=== PATIENT | male | born 1960 | race Caucasian/White ===

== ENCOUNTER → 2017-07-24 | Day surgery (SDC) | payer OTHER ==
[2017-07-14 14:31] LABS: HEMATOCRIT 45.4 % (38.2-49.6); HEMOGLOBIN 15.7 g/dL (14.0-18.0)
[2017-07-14 15:09] LABS: ANION GAP 13.3 mmol/L (8-16); BLOOD UREA NITROGEN 8 mg/dL (7-26); BUN/CREATININE RATIO 9 (6-25); CALCIUM 9.2 mg/dL (8.4-10.2); CARBON DIOXIDE 27 mmol/L (22-29); CHLORIDE 100 mmol/L (98-107); CREATININE, SERUM 0.88 mg/dL (0.72-1.25); EST GLOMERULAR FILTRATION RATE > 60 ML/MIN (60-); GLUCOSE 94 mg/dL (74-118); POTASSIUM 4.3 mmol/L (3.5-5.1); SODIUM 136 mmol/L (136-145)
[~2017-07-24] MED LIST: BALANCED SALT SOLN (OPTH) 15 ML BTL IO ONE; BUPIVACAINE HC 0.75% PF 10ML VIAL INJ ONE; CHONDR SU A NA/HYALUR SOD 1 EACH KIT IO ONE; CYCLOPENTOLATE HCL 2% OPTH SOLN 2 ML BTL OP ONE; EPINEPHRINE HCL INJ 1 MG/ML AMP ONE; GATIFLOXACIN(OPTH) 5 ML LIQD ONE; LIDOCAINE 2% /EPINEPHRINE 20 ML SDV INJ ONE; LIDOCAINE HCL 2% LOCAL INJ 5 ML SDV VIAL INJ ONE; LIDOCAINE HCL-PF 4% 40 MG/1 ML 5ML AMP ONE; MIDAZOLAM HCL 2 MG/2 ML VIAL ONE; PHENYLEPHRINE HCL 2 ML DROPS ONE; PILOCARPINE HCL(OPTH) 15 ML LIQD ONE; POVIDONE IODINE 5% (OPTH) 30 ML BTL ONE; PROPOFOL IV EMULSION 10 MG/ML 20 ML VIAL ONE; TOBRAMYCIN/DEXAMETHASONE(OPTH) 3.5 GM TUBE ONE
== END | disposition home or self-care (01) ==
LOC: OR 07:29
PROVIDERS: ATTEND Ophthalmology
DX: H25.12 Age-related nuclear cataract, left eye (principal); F17.200 Nicotine dependence, unspecified, uncomplicated; Z01.810 Encounter for preprocedural cardiovascular examination; Z01.812 Encounter for preprocedural laboratory examination
CPT/HCPCS: 36415; 66982; 80048; 85014; 85018; 93005; J0171; J2001 ×2; J2250

== ENCOUNTER → 2017-09-18 | Day surgery (SDC) | payer OTHER ==
[~2017-09-18] MED LIST changes: +FENTANYL CITRATE/PF 100MCG/2 ML INJ ONE; -LIDOCAINE HCL 2% LOCAL INJ 5 ML SDV VIAL INJ ONE; +PROPOFOL IV EMULSION 10 MG/ML 20 ML VIAL IV ONE; -PROPOFOL IV EMULSION 10 MG/ML 20 ML VIAL ONE
== END | disposition home or self-care (01) ==
LOC: OR 07:51
PROVIDERS: ATTEND Ophthalmology
CPT/HCPCS: J0171; J2001; J2250

== ENCOUNTER 2018-01-25 12:52 | Inpatient (IN) | payer OTHER ==
[~2018-01-25] VITALS: Ht 185.4 cm; Wt 83.5 kg
[2018-01-25] MEDS ORDERED: SODIUM CHLORIDE 0.9% 1000ML 1,000 ML IV ONE (13:45)
[2018-01-25 14:06] LABS: BASOPHILS % 0.4 % (0.0-1.0); EOSINOPHILS # (AUTO) 0.1 (0.0-0.4); EOSINOPHILS % 1.5 % (0.0-6.0); HEMATOCRIT 41.5 % (38.2-49.6); HEMOGLOBIN 14.7 g/dL (14.0-18.0); LYMPHOCYTES # (AUTO) 2.5 (1.0-3.2); LYMPHOCYTES % 34.6 % (18.0-39.1); MEAN CORPUSCULAR HEMOGLOBIN 35.5 pg (28-32); MEAN CORPUSCULAR HGB CONC 35.4 g/dL (31-35); MEAN CORPUSCULAR VOLUME 100.2 fL (81-99); MONOCYTES # (AUTO) 0.6 (0.2-0.8); MONOCYTES % 8.7 % (4.4-11.3); NEUTROPHILS # (AUTO) 3.9 (2.1-6.9); NEUTROPHILS % 54.4 % (38.7-80.0); PLATELET COUNT 241 x10e3/uL (140-360); RED BLOOD COUNT 4.14 x10e6/uL (4.3-5.7); RED CELL DISTRIBUTION WIDTH 12.4 % (11.7-14.4)
[2018-01-25 14:24] LABS: ANION GAP 14.6 mmol/L (8-16); BLOOD UREA NITROGEN < 5 mg/dL (7-26); CALCIUM 8.9 mg/dL (8.4-10.2); CARBON DIOXIDE 24 mmol/L (22-29); CHLORIDE 98 mmol/L (98-107); CREATININE, SERUM 1.28 mg/dL (0.72-1.25); EST GLOMERULAR FILTRATION RATE 58 ML/MIN (60-); GLUCOSE 97 mg/dL (74-118); MAGNESIUM 1.8 MG/DL (1.3-2.1); POTASSIUM 3.6 mmol/L (3.5-5.1); SODIUM 133 mmol/L (136-145)
[2018-01-25 14:34] LABS: BUN/CREATININE RATIO 4 (6-25)
--- NOTE | 2018-01-25 14:38 | Diagnostic Imaging Report ---
History: Low back pain Comparison studies: None Technique: Axial images were obtained from T12 through the sacrum. Coronal and sagittal images reconstructed from the axial data. Dose modulation, iterative reconstruction, and/or weight based adjustment of the mA/kV was utilized to reduce the radiation dose to as low as reasonably achievable. Intravenous contrast: None Findings: Number of non-rib bearing vertebral bodies: 5 Alignment: Right curvature centered at L1-L2 is associated with 3 mm right lateral displacement of L2 over L3 and 3 mm left lateral displacement of L4 on L5. Normal lordosis. Soft tissues: Punctate atherosclerotic calcifications in the aorta. Paraspinal muscles: Unremarkable. Vertebrae: Bones are mildly demineralized. No compression fractures, infection or neoplasm. Degenerative changes: T12-L1: Mildly degenerated disc. No significant spinal canal or foraminal stenosis in spite of a disc bulge. No disc herniation. L1-L2: Mildly degenerated disc, worse on the left due to the curvature. Mild spinal canal stenosis and mild right foraminal stenosis due to a left asymmetric disc bulge Patent left foramen. No disc herniation. L2-L3: Mildly degenerated disc, worse on the left due to the curvature. Moderate spinal canal stenosis and foraminal stenosis, mild right, moderate left due to a left asymmetric disc bulge, endplate osteophytes and mild facet arthrosis. L3-L4: Mildly degenerated disc. Severe spinal canal stenosis and moderate bilateral foraminal stenosis is due to a disc bulge, buckled ligamenta flava and facet arthrosis. No disc herniation. L4-L5: Moderately degenerated disc, worse on the right due to the curvature. Severe spinal canal stenosis and foraminal stenosis, severe right, moderate left, is due to a right asymmetric disc bulge, thickened ligamenta flava and facet arthrosis. No disc herniation. L5-S1: Mildly degenerated disc. Severe bilateral foraminal stenosis due to a disc bulge, endplate osteophytes and facet arthrosis. Patent spinal canal. No disc herniation. Sacroiliac joints: No degenerative changes. IMPRESSION: 1. Degenerated discs from T12 through S1, worse on the left from T12 to L3 and on the right at L4-5 due to a right curvature centered at L1-L2 and lateral displacement of L2 on L3 and L4 on L5. 2. Degenerative spinal canal stenosis is moderate at L2-3 but severe at L3-4 and L4-5. 3. Superimposed foraminal stenosis is worst, as expected due to the curvature, on the left at L2-3, bilaterally at L3-4, bilaterally at L4-5 but worse on the right, bilaterally at L5-S1. 4. No disc herniations Signed by: Dr. Ciro Barnett M.D. on 01/25/2018 2:34 PM
[2018-01-25 15:38] LABS: CLARITY,URINE CLEAR (CLEAR); COLOR,URINE YELLOW (YELLOW)
[2018-01-25 15:39] LABS: BACTERIA,URINE RARE /HPF; BILIRUBIN,URINE NEGATIVE (NEGATIVE); KETONES,URINE NEGATIVE (NEGATIVE); LEUKOCYTE ESTERASE ,URINE NEGATIVE (NEGATIVE); NITRITE,URINE NEGATIVE (NEGATIVE); PROTEIN,URINE DIPSTICK NEGATIVE (NEGATIVE); RBC,URINE 0-5 /HPF (0-5); URINE UROBILINOGEN 0.2 mg/dL (0.2 - 1); WBC,URINE (MAN) 0-5 /HPF (0-5)
[2018-01-25] MEDS: NICOTINE 21 MG/EA PATCH TOP SCH (16:40)
[2018-01-25 17:45] VITALS: BP 141/82
[2018-01-25 18:20] VITALS: BP 141/82
[2018-01-25 18:33] VITALS: BP 141/82
[2018-01-25 20:05] VITALS: BP 149/82
[2018-01-25 20:15] VITALS: BP 149/82
[2018-01-25] MEDS: HYDROCODONE/APAP 7.5MG-325MG 1 EA TAB PO PRN (23:40)
[2018-01-26] VITALS (7 sets, daily range): BP systolic 135–159; BP diastolic 82–97
[2018-01-26] MEDS: NICOTINE 21 MG/EA PATCH TOP SCH (11:17)
--- NOTE | 2018-01-26 17:14 | Consultation ---
DATE OF CONSULTATION: January 26, 2018 NEUROLOGY CONSULTATION HISTORY OF PRESENT ILLNESS: Mr. Harry is a 57-year-old, [id number] man without reported past medical history admitted to [facility] on January 25, 2018, with weakness and numbness affecting both legs. Approximately 5 weeks ago, the patient began to experience multiple symptoms in his legs which are described as follows: Mr. Harry reports numbness and decreased sensation in the feet, forelegs, and thighs. Patient does not endorse progression of numbness either distally or proximally. He reports noticing, "My legs were numb one day." The patient reports weakness affecting both legs. Specifically, Mr. Harry reports difficulty walking down stairs. Patient reports impairment of balance. He cannot stand for a long time without swaying or "weaving." The patient endorses fatigability of the muscles with prolonged standing and walking. This improves with sitting for a brief period of time. Initially, the patient experienced intermittent pain affecting both legs. This is further described as a brief shock traveling from the low back distally to the feet. The pain was exacerbated by increased intraabdominal pressure (i.e., cough or sneeze). However, after approximately 2 to 3 days, this pain spontaneously resolved. Mr. Harry does endorse mild low back pain which is chronic. He reports occasional urinary incontinence. He does not report bowel dysfunction or sexual dysfunction. As stated above, these symptoms began approximately 5 weeks ago and have gradually worsened during that time. Mr. Harry presented to the emergency center at [facility] on January 25, 2018, for further evaluation of the above symptoms. Upon arrival in the emergency center, the patient was afebrile with a blood pressure of 123/88 and a pulse of 102 beats per minute. His neurological examination was significant for an abnormal gait, which is described as follows: Ambulates with a wide gait with need to visualize the floor before placing the foot on the floor due to lack of sensation. Muscle tone remains strong. There are no abnormalities in strength, deep tendon reflexes, or sensation noted on the emergency center physician's exam. While in the emergency center, a CT of the lumbar spine was performed and revealed multilevel degenerative disk disease, most prominent at L2-L3, L3-L4, and L4-L5 with moderate to severe spinal canal stenosis at these levels. Mr. Harry was admitted to [facility] as an inpatient for further evaluation and treatment of his symptoms. REVIEW OF SYSTEMS: Weakness of both legs, numbness of both legs, impairment of balance and gait, chronic mild low back pain, urinary incontinence. Otherwise, the 12-point review of systems is negative. PAST MEDICAL HISTORY: The patient endorses a prior diagnosis of hypertension, which he treats with diet and exercise. He endorses prior low back injuries. PAST SURGICAL HISTORY: Bilateral cataract removal, right elbow surgery, right ankle surgery. PAST HOSPITALIZATIONS: Surgeries/procedures as listed, infection with Yersinia pestis resulting in a prolonged hospitalization (2 weeks). FAMILY MEDICAL HISTORY: The patient's paternal and maternal grandparents are . Their medical histories are unknown. The patient's father is from Alzheimer disease. The patient's mother is from breast cancer. She had a history of thyroid cancer as well. Mr. Harry has 1 brother who is alive. Other than being morbidly obese, he is otherwise healthy. The patient has no biological children. SOCIAL HISTORY: Patient is single. 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 The patient does report tobacco use. He has smoked 1 pack of cigarettes per day for the past 37 years. The patient reports daily alcohol use. He drinks 2 beers after work. The patient reports remote marijuana use. HOME MEDICATIONS: Advil as needed. ALLERGIES: PENICILLIN. NO KNOWN FOOD ALLERGIES. NO KNOWN ALLERGY TO LATEX. NO KNOWN ALLERGIES TO IODINE OR OTHER CONTRAST MATERIALS. PHYSICAL EXAMINATION VITAL SIGNS: Height 73 inches. Weight 184 pounds. BMI 24.3 kg per meter squared. Blood pressure 135/84 mmHg. Pulse 69 beats per minute. Respiratory rate 20 breaths per minute. Oxygen saturation 97% on room air. GENERAL: The patient is awake and alert. Does not appear distressed. HEENT: Normocephalic and atraumatic. Pupils are surgical. Moist mucous membranes. NECK: Supple. No appreciable thyromegaly. No appreciable carotid bruits. CARDIOVASCULAR: S1 and S2, regular rate and rhythm. No murmurs, rubs or gallops. RESPIRATORY: Clear to auscultation bilaterally. No wheezes, rhonchi or rales. EXTREMITIES: The skin is warm and dry. No clubbing, cyanosis or edema. The posterior tibial and dorsalis pedis pulses are 2+ and symmetric. SKIN: No rashes or lesions. NEUROLOGIC EXAMINATION MEMORY/ATTENTION: The patient is awake and alert. Oriented to person, place, time, and situation. CRANIAL NERVES: Cranial nerve I: Not tested. Cranial nerves II, III, IV, and : Pupils are surgical. Extraocular movements intact. No nystagmus. Cranial nerve V: Sensation is intact to light touch and pinprick in the bilateral V1 through V3 distributions. Strength of the temporalis and masseter muscles is within normal limits. Cranial nerve VII: The face is symmetric as are all facial movements. Strength is within normal limits. Cranial nerve VIII: Hearing is intact to finger rub bilaterally. Cranial nerves IX and X: The soft palate elevates equally and symmetrically. Cranial nerve XI: Normal strength of the bilateral sternocleidomastoid and trapezius muscles. Cranial nerve XII: The tongue protrudes midline and moves symmetrically from side to side. STRENGTH: Bulk is normal. Strength is 5/5 in the bilateral deltoids, biceps, triceps, wrist flexors and extensors, finger flexors and extensors, intrinsic hand muscles. Strength is 4/5 in the bilateral hip flexors, knee flexors, and ankle dorsiflexion. Strength is 5/5 in the bilateral knee extensors and ankle plantar flexion. Tone is normal. DTRs: Deep tendon reflexes are 2+ and symmetric at the triceps, biceps, and rachial radialis. Deep tendon reflexes are 3+ and symmetric at the patellas and Achilles. Plantar responses are extensor bilaterally. There are 2 to 3 beats of clonus at both ankles. Negative bilateral Adan signs. SENSATION: Sensation is intact to light touch and pinprick in both arms. Mr. Harry reports feeling pressure over his legs but cannot differentiate between light touch and pinprick. There is no sensory level. CEREBELLAR: Xltegy-brdu-sjaeqo and heel-mata movements are intact without dysmetria or other impairment. GAIT: Deferred. SPEECH: Spontaneous speech is normal without appreciable dysarthria or aphasia. Repetition is intact. INVOLUNTARY MOVEMENTS: None. PRONATOR DRIFT: None. LABORATORY DATA: A basic metabolic panel is significant for mild hyponatremia with sodium 133, BUN less than 5, creatinine 1.28, and estimated GFR of 58. The CBC with differential and platelets is unremarkable. A urinalysis is unremarkable. DIAGNOSTIC STUDIES 1. CT of the lumbar spine without contrast, 01/25/2018: 1) Degenerated disks from T12 through S1, worse on the left from T12 to L3 and on the right at L4-5 due to a right curvature centered at L1-L2 and lateral displacement of L2 on L3 and L4 on L5. 2) Degenerative spinal canal stenosis is moderate at L2-3 but severe at L3-4 and L4-5. 3) Superimposed foraminal stenosis is worse, as expected due to the curvature, on the left at L2-3, bilaterally at L3-4, bilaterally at L4-5 but worse on the right, bilaterally at L5-S1. 4) No disk herniations. 2. MRI of the lumbar spine without contrast, 01/26/2018: Report pending. On my review of the images, there appears to be severe spinal canal stenosis at L3-4 and L4-5. There is multilevel degenerative disk disease, similar to the findings reported on the CT of the lumbar spine without contrast. ASSESSMENT AND PLAN: Mr. Harry is a 57-year-old man without reported past medical history admitted to [facility] on January 25, 2018, with a 5-week history of progressively worsening lower extremity weakness and numbness. Mr. Harry has undergone a complete neurological examination, which revealed weakness of flexor muscles in both legs, hyperreflexia in the lower extremities with extensor plantar responses and 2 to 3 beats of clonus at both ankles, and diminished sensation to light touch and pinprick over both legs without a sensory level. Patient's laboratory data and other diagnostic studies have been reviewed and are documented above. In my opinion, the patient's symptoms are secondary to lumbar spinal stenosis. A consultation with Dr. Deepak Lizama (neurosurgery) is recommended for neurosurgical evaluation. Thank you for this consultation. Time spent: 70 minutes. Job#: [id number] OMKAR GUSTAFSON
[2018-01-26] MEDS: HYDROCODONE/APAP 7.5MG-325MG 1 EA TAB PO PRN (21:21)
[2018-01-27] VITALS: BP 143/76
--- NOTE | 2018-01-27 02:38 | Consultation ---
DATE OF CONSULTATION: January 26, 2018 REASON FOR CONSULTATION: Bilateral lower extremity weakness. HISTORY: The patient is a 57-year-old man with no significant previous history of back problems, who developed acute onset of numbness in both lower extremities on a Friday precisely 5 weeks ago. The numbness extends from the groin circumferentially down the legs to both feet and is symmetric. He has simultaneously developed significant instability of gait and has a difficult time placing his feet on the ground to walk without looking at them. His mother had chemotherapy-induced polyneuropathy and his current gait reminds him of the way his mother walked. He denies any lumbar pain or any radiating pain down the legs. After standing for some period of time or walking a short distance, he feels obligated to sit down although again he has no pain. He absolutely denies any bladder incontinence. PHYSICAL EXAMINATION: He is alert and lucid with intact memory and fluent speech. Cranial nerves are intact. Motor strength is normal in the upper extremities. Motor strength also appears preserved in the legs. He is able to lift his knees against resistance and is able to stand on his toes and heels. Sensory testing reveals a diffuse nondermatomal sensory loss in the legs below the groin. There is no numbness over the trunk. He is able to stand and take a few steps with assistance, but his gait is quite unstable. Deep tendon reflexes are 2+ in the biceps, triceps, and patellar tendons and absent in the Achilles' tendons. Plantar responses are flexor. IMAGING STUDIES: MRI of the lumbar spine was reviewed. There is moderately severe spinal stenosis at L2-3, L3-4, and L4-5. There is some tortuosity of the cauda equina rootlets just above L2-3 and just above L4-5. However, there are no acute findings. Specifically, there is no acute disk herniation or fracture. IMPRESSION: Multilevel lumbar spinal stenosis at L2-3, L3-4, and L4-5. However, the patient's rapid onset of numbness in the lower extremities is quite unusual for chronic lumbar spinal stenosis. So is the complete absence of pain and the gait instability that appears quite out of proportion to the degree of stenosis. I am concerned about the presence of a subacute and possibly subacute progressive neuropathy syndrome. I would like him to have an electromyelogram examination before undergoing surgery on his lumbar spine. Since that cannot be performed as an inpatient, I have arranged with a neurologist, Dr. Peg Adamson to perform an electromyelogram on him on Friday as an outpatient. The patient should be discharged tomorrow with a walker and undergo the electromyelogram on Friday. I will see him as an outpatient shortly thereafter and decide regarding the need for lumbar surgery. Job#: [id number] cc:DYAN CAVAZOS MD
[2018-01-27 04:00] VITALS: BP 135/66
[2018-01-27 07:45] VITALS: BP 135/66
[2018-01-27 07:53] VITALS: BP 150/87
[2018-01-27] MEDS ORDERED: NICOTINE 21 MG/EA PATCH TOP SCH (09:00)
[2018-01-27 11:59] VITALS: BP 136/96
[2018-01-27] MEDS ORDERED: NORCO 5-325 TA1 EACH PO (13:19)
--- NOTE | 2018-01-27 13:53 | Diagnostic Imaging Report ---
History: Low back pain, leg weakness for 4 weeks Comparison studies: CT of the lumbar spine 01/25/2018 Technique: Sagittal, coronal and axial T2 , sagittal T1 and IR, axial spin density oblique. Intravenous contrast: None Findings: Number of lumbar vertebral bodies:5 Alignment: Normal lordosis.S-shaped scoliosis with dextrocurvature centered at L1-L2 and levocurvature centered at L4-L5. Soft tissues: No T2 hyperintense inflammatory changes. 3 cm cyst at the right kidney upper pole, cannot be evaluated. Partially visualized fluid intensity structure in the pelvis, likely related to distended urinary bladder Paraspinal muscles: No signal abnormalities. No atrophy. Lower thoracic cord:Normal in signal and morphology. The tip of the conus is at L1 inferior endplate. Cauda equina: No masses. No arachnoiditis. Vertebrae: Heterogeneous signal intensity of the bone marrow with Modic. When changes of the lower lumbar spine. No compression fractures, infection or neoplasm. Degenerative changes: L1-L2: Disc degeneration with loss of T2 signal and decreased intervertebral space. Asymmetric left disc bulge results in mild canal stenosis and mild left foraminal narrowing. L2-L3: Disc degeneration with loss of T2 signal and decreased intervertebral space. Asymmetric right disc bulge with superimposed right subarticular disc protrusion, mild facet hypertrophy and ligamentum flavum thickening results in severe canal stenosis, narrowing of the right subarticular recesses and moderate bilateral foraminal narrowing. Waviness of the cauda equina nerve roots above this level suggests nerve root entrapment. L3-L4: Disc degeneration with loss of T2 signal and decreased intervertebral space. Diffuse disc bulge, moderate facet hypertrophy and ligamentum flavum thickening results in severe canal stenosis and moderate bilateral foraminal narrowing more prominent on the right. L4-L5: Disc degeneration with loss of T2 signal, decreased intervertebral space and Modic type I changes. Diffuse disc bulge, moderate facet hypertrophy and ligamentum flavum thickening results in moderate left canal stenosis, obliterated right subarticular recess, severe right and mild left foraminal narrowing. Facet edematous changes on the right side. L5-S1: Disc degeneration with loss of T2 signal, decreased intervertebral space and Modic type I changes. Diffuse disc bulge and mild facet hypertrophy results in mild canal stenosis, moderate right and severe left foraminal narrowing. Edematous changes at the left facets. Additional findings: None IMPRESSION: Severe degenerative canal stenosis at L2-L3 and L3-L4. Moderate to severe degenerative canal stenosis at L4-L5. Moderate degenerative foraminal narrowing at L2-L3 and L3-L4 bilaterally and L5-S1 on the right. Severe degenerative foraminal narrowing at L4-L5 on the right and L5-S1 on the left. Disc degeneration throughout the lumbar spine with Modic type I changes at L4-L5 and L5-S1. Facet hypertrophy at the lower lumbar spine with edematous changes at L4-L5 on the right and L5-S1 on the left. Other degenerative changes as described above Signed by: DR Kayden Combs M.D. on 01/27/2018 1:49 PM
== END 2018-01-27 14:45 | disposition home or self-care (01) | DRG 552 ==
LOC: ER 12:52 → ERHOLD 17:02 → MED/SURG 17:34
DX: M54.16 Radiculopathy, lumbar region (principal); Z74.09 Other reduced mobility; G89.29 Other chronic pain; N39.498 Other specified urinary incontinence; F17.210 Nicotine dependence, cigarettes, uncomplicated
CPT/HCPCS: 36415; 72131; 72148; 80048; 81001; 83735; 85025; 99284; J7030

== ENCOUNTER 2018-02-05 08:05 | Observation (INO) | payer OTHER ==
[2018-02-04 16:58] LABS: BASOPHILS % 0.5 % (0.0-1.0); EOSINOPHILS # (AUTO) 0.2 (0.0-0.4); EOSINOPHILS % 1.9 % (0.0-6.0); HEMATOCRIT 44.5 % (38.2-49.6); HEMOGLOBIN 15.6 g/dL (14.0-18.0); LYMPHOCYTES # (AUTO) 2.5 (1.0-3.2); LYMPHOCYTES % 31.2 % (18.0-39.1); MEAN CORPUSCULAR HEMOGLOBIN 34.8 pg (28-32); MEAN CORPUSCULAR HGB CONC 35.1 g/dL (31-35); MEAN CORPUSCULAR VOLUME 99.3 fL (81-99); NEUTROPHILS # (AUTO) 4.3 (2.1-6.9); NEUTROPHILS % 53.9 % (38.7-80.0); PLATELET COUNT 253 x10e3/uL (140-360); RED BLOOD COUNT 4.48 x10e6/uL (4.3-5.7); RED CELL DISTRIBUTION WIDTH 11.9 % (11.7-14.4)
[2018-02-04 17:09] LABS: INR 1.09; PROTHROMBIN TIME 13.3 seconds (11.9-14.5)
[2018-02-04 17:10] LABS: PARTIAL THROMBOPLASTIN TIME 24.5 seconds (23.8-35.5)
[2018-02-04 17:16] LABS: ANION GAP 15.2 mmol/L (8-16); BLOOD UREA NITROGEN 7 mg/dL (7-26); BUN/CREATININE RATIO 9 (6-25); CALCIUM 9.7 mg/dL (8.4-10.2); CARBON DIOXIDE 23 mmol/L (22-29); CHLORIDE 99 mmol/L (98-107); CREATININE, SERUM 0.78 mg/dL (0.72-1.25); EST GLOMERULAR FILTRATION RATE > 60 ML/MIN (60-); GLUCOSE 91 mg/dL (74-118); POTASSIUM 4.2 mmol/L (3.5-5.1); SODIUM 133 mmol/L (136-145)
--- NOTE | 2018-02-04 17:21 | Diagnostic Imaging Report ---
2 frontal and one lateral views of the chest. HISTORY: Preoperative evaluation, C7-T1 spondylolisthesis COMPARISON: None available. DISCUSSION: Lungs: The lungs are well inflated. No evidence of a consolidative pneumonia or pulmonary alveolar edema. Pleura: No pleural effusion or pneumothorax. Heart and mediastinum: The cardiomediastinal silhouette appears unremarkable. Bones: No acute osseous lesion. IMPRESSION: No acute radiographic abnormality. Signed by: Dr. Atif Sparrow D.O., M.M.M. on 02/04/2018 5:17 PM
[~2018-02-05] VITALS: Ht 185.4 cm; Wt 86.2 kg
[~2018-02-05 08:05] MED LIST changes: +ACETAMINOPHEN 1000 MG/100 ML 100 ML IV ONE; +BACITRACIN 50,000 UNIT VIAL ONE; -BALANCED SALT SOLN (OPTH) 15 ML BTL IO ONE; +BUPIVACAINE 0.5%/EPI 30 ML SDV INJ ONE; -BUPIVACAINE HC 0.75% PF 10ML VIAL INJ ONE; -CHONDR SU A NA/HYALUR SOD 1 EACH KIT IO ONE; -CYCLOPENTOLATE HCL 2% OPTH SOLN 2 ML BTL OP ONE; -EPINEPHRINE HCL INJ 1 MG/ML AMP ONE; -FENTANYL CITRATE/PF 100MCG/2 ML INJ ONE; -GATIFLOXACIN(OPTH) 5 ML LIQD ONE; +GELATIN SPONGE SZ 100 ONE; -LIDOCAINE 2% /EPINEPHRINE 20 ML SDV INJ ONE; +LIDOCAINE HCL (LTA) 4 ML SOLN ONE; -LIDOCAINE HCL-PF 4% 40 MG/1 ML 5ML AMP ONE; -MIDAZOLAM HCL 2 MG/2 ML VIAL ONE; +NORCO 5-325 TA1 EACH PO; -PHENYLEPHRINE HCL 2 ML DROPS ONE; -PILOCARPINE HCL(OPTH) 15 ML LIQD ONE; -POVIDONE IODINE 5% (OPTH) 30 ML BTL ONE; -PROPOFOL IV EMULSION 10 MG/ML 20 ML VIAL IV ONE; +THROMBIN FOR SOLN 5,000 UNIT VIAL ONE; -TOBRAMYCIN/DEXAMETHASONE(OPTH) 3.5 GM TUBE ONE
[2018-02-05] MEDS ORDERED: VANCOMYCIN 1GM/NS 250 ML 250 ML ONE (09:33)
[2018-02-05] MEDS: LACTATED RINGER'S 1,000 ML IV SCH ×2 (12:20→20:40)
[2018-02-05] MEDS ORDERED: ONDANSETRON HCL INJ 2 MG/ML VIAL IV PRN (12:30)
[2018-02-05] MEDS ORDERED: CEPACOL SORE THROAT LOZENGES PO PRN (12:30)
[2018-02-05] MEDS ORDERED: MAGNESIUM/ALUMINUM/SIMETHICONE 30 ML UDC PO PRN (12:30)
[2018-02-05] MEDS ORDERED: MORPHINE SULFATE 5 MG/ML VIAL IM PRN (12:30)
[2018-02-05] MEDS ORDERED: PROMETHAZINE HCL (IM) 25 MG/ML VIAL IM PRN (12:30)
[2018-02-05] MEDS ORDERED: ACETAMINOPHEN 325 MG TAB PO PRN (12:30)
[2018-02-05] MEDS ORDERED: HYDROMORPHONE 2MG/ML 2 MG/ML ML IV PRN (12:30)
[2018-02-05] MEDS ORDERED: FENTANYL CITRATE/PF 100MCG/2 ML INJ ONE ×2 (12:44→18:07)
[2018-02-05] MEDS ORDERED: HYDRALAZINE HCL 20 MG/ML VIAL ONE (13:20)
[2018-02-05 13:31] VITALS: BP 140/99
[2018-02-05 14:00] VITALS: BP 138/81
[2018-02-05 14:15] VITALS: BP 138/81
[2018-02-05] MEDS: DEXAMETHASONE SOD PHOS INJ 4 MG/ML VIAL IV SCH ×2 (16:21→20:15)
[2018-02-05] MEDS: NICOTINE 21 MG/EA PATCH TOP SCH (16:21)
--- NOTE | 2018-02-05 16:55 | Operative Report ---
DATE OF PROCEDURE: February 05, 2018 PREOPERATIVE DIAGNOSIS: C7-T1 spondylolisthesis and spondylosis with cord compression and cord edema, M47.13, M43.13. POSTOPERATIVE DIAGNOSIS: C7-T1 spondylolisthesis and spondylosis with cord compression and cord edema, M47.13, M43.13. PROCEDURES 1. C7-T1 anterior cervical diskectomy, microsurgical osteophyte resection and allograft fusion, 96798. 2. Preparation of tricortical iliac crest allograft, 64755. 3. C6-C7 anterior cervical plating with Synthes CSLP plate, [id number]. 4. C7 bilateral decompressive laminectomy, 22513-05. 5. T1 bilateral decompressive laminectomy, 73850. ANESTHESIA: General. INDICATIONS: The patient is a man who presents with significant numbness below the umbilicus and severe gait instability. After a thorough neurological workup, he was found to have severe spinal stenosis at C7-T1 due to a combination of spondylolisthesis and spondylosis with compression of the cord and myelomalacia and edema. He was taken to the operating room for a C7-T1 anterior and posterior decompression and fusion. DETAILS OF PROCEDURE: After induction of general anesthesia, the patient was placed on the operating table in supine position. The right side of the neck was prepped and draped in sterile fashion. The fluoroscopic C-arm was positioned in cross-table lateral orientation. A transverse incision was created on the right side of the neck just above the clavicle. The platysma was divided in line with the incision. A subplatysmal dissection was carried out. An avascular plane of dissection was developed medial to sternocleidomastoid muscle and was followed medial to the carotid sheath to the anterior border of the cervical spine. The deep cervical fascia was opened. The esophagus was retracted to the left, and the recurrent laryngeal nerve was not encountered at any point during this operation. Very careful dissection of the soft tissues was carried out in this region. The attachments of the longus coli muscles to the anterolateral aspects of the vertebral bodies of C7 and T1 were divided. The anterior longitudinal ligament was resected. The large anterior osteophyte was resected. [place] posts were inserted into C7 and T1, and the [place] distractor was used to distract the disk space. The anterior annulus of the disk was incised with a #11 blade, and the contents of the disk were thoroughly evacuated with angled curets and pituitary rongeurs. The posterior osteophytes were meticulously drilled with a 2-mm cutting bur on a high-speed drill until they were completely removed. The posterior annulus of the disk, chronically herniated disk material and the posterior longitudinal ligament were resected layer by layer until the dura was fully exposed and decompressed. The medial aspects of the uncinate processes were resected bilaterally to further expose and decompress the origins of the C8 nerve root. After satisfactory decompression had been achieved, the endplates were prepared for fusion. A piece of tricortical iliac crest allograft was cut to the size and shape of the disk space and was inserted into the disk space under distraction and fluoroscopic guidance. The distraction was released, and the distraction posts were removed. A Synthes CSLP variable-type anterior cervical plate measuring 18 mm was selected and was affixed to the vertebral bodies of C7 and T1 with 2 pairs of 16-mm x 4.35-mm screws. All screw holes were drilled and tapped under lateral fluoroscopic guidance. All screws were locked with the appropriate locking screws. An excellent construct was obtained. The wound was copiously irrigated with Bacitracin solution. Meticulous hemostasis was secured. A small Hemovac drain was placed and brought out through a separate stab incision. The platysma was closed with 3-0 Vicryl sutures. The skin was closed with 4-0 Monocryl sutures in subcuticular fashion. Steri-Strips and dressing were applied. The patient was then turned prone onto the operating table over gel rolls. His head was stabilized over a [employer]View head cashier. His arms were tucked by his side. The C-arm was positioned in a cross-table lateral orientation. The posterior aspect of the neck was prepped and draped in a sterile fashion. A small midline incision was created over the C7-T1 interspace. The cervical fascia was opened along the midline, and a subperiosteal dissection was carried out to expose the laminae of C7 and T1. Multiple fluoroscopic images confirmed correct localization. The spinous processes were resected. The operating microscope was brought in. A high-speed drill equipped with saud bur was used to drill a trough on either side of the laminae of C7 and T1. These laminae were then elevated and removed. A 1-mm [place] rongeur was used to resect the ligamentum flavum very carefully to fully expose and decompress the dura in this region. After satisfactory decompression had been achieved, the dura was covered with a layer of Gelfoam at the paraspinal muscle. Hemostasis was achieved with bipolar electrocautery. A small Hemovac drain was placed in this incision as well, and the incision was closed in multiple layers with #0 and 2-0 Vicryl sutures and luz marina. A dressing was applied. The patient was awakened, extubated and taken to the postanesthesia care unit in stable condition. No intraoperative complications were encountered. The estimated blood loss for the entire 2 procedures was about 50 mL. Job#: [id number]
[2018-02-05 18:02] VITALS: BP 151/94
[2018-02-05] MEDS ORDERED: MORPHINE SULFATE INJ 10 MG/ML ONE (18:07)
[2018-02-05] MEDS ORDERED: MIDAZOLAM HCL 2 MG/2 ML VIAL ONE (18:07)
[2018-02-05] MEDS ORDERED: NEOSTIGMINE 5 MG/5ML SYR ONE (18:56)
[2018-02-05] MEDS ORDERED: GLYCOPYRROLATE INJ 1MG/ 5 ML SYR ONE (18:56)
[2018-02-05] MEDS ORDERED: SEVOFLURANE INHAL SOLN 250 ML PEN BTL ONE (18:56)
[2018-02-05] MEDS ORDERED: PROPOFOL IV EMULSION 10 MG/ML 20 ML VIAL ONE (18:56)
[2018-02-05] MEDS ORDERED: ROCURONIUM BROMIDE 10 MG/ML 5ML VIAL ONE (18:56)
[2018-02-05] MEDS ORDERED: ONDANSETRON HCL INJ 2 MG/ML VIAL ONE (18:56)
[2018-02-05] MEDS ORDERED: LIDOCAINE HCL 2% LOCAL INJ 5 ML SDV VIAL INJ ONE (18:56)
[2018-02-05] MEDS ORDERED: EPHEDRINE SULFATE INJ 50 MG/10 ML SYR ONE (18:56)
[2018-02-05] MEDS ORDERED: LIDOCAINE HCL 2% JELLY 5 ML TUBE ONE (18:56)
[2018-02-05] MEDS ORDERED: DEXAMETHASONE SOD PHOS INJ 4 MG/ML VIAL ONE (18:56)
[2018-02-05 20:00] VITALS: BP 134/86
[2018-02-05] MEDS: OXYCODONE/ACETAMINOPHEN 5-325 1 EACH TABLET PO PRN (20:00)
[2018-02-05] MEDS: VANCOMYCIN 1GM/NS 250 ML 250 ML IV SCH (20:15)
[2018-02-05] MEDS ORDERED: ZOLPIDEM TARTRATE 5 MG TAB PO PRN (21:00)
[2018-02-05] MEDS: CARISOPRODOL 350 MG TAB PO PRN (23:35)
[2018-02-06] VITALS (8 sets, daily range): BP systolic 113–153; BP diastolic 82–98
[2018-02-06] MEDS: OXYCODONE/ACETAMINOPHEN 5-325 1 EACH TABLET PO PRN ×4 (02:15→18:35)
[2018-02-06] MEDS: DEXAMETHASONE SOD PHOS INJ 4 MG/ML VIAL IV SCH ×4 (02:32→21:00)
[2018-02-06] MEDS: LACTATED RINGER'S 1,000 ML IV SCH ×3 (05:00→20:42)
[2018-02-06] MEDS: VANCOMYCIN 1GM/NS 250 ML 250 ML IV SCH (09:42)
[2018-02-06] MEDS: NICOTINE 21 MG/EA PATCH TOP SCH (09:42)
--- NOTE | 2018-02-06 11:23 | Diagnostic Imaging Report ---
PROCEDURE: X-RAY CERVICAL SPINE, TWO VIEWS COMPARISON:None. INDICATIONS:POST CERVICAL SPINE SURGERY FINDINGS: AP and lateral views of the cervical spine from the skull base to C7 show anterior cervical spine surgical fusion from C7 to T1. The hardware appears intact. The T1 vertebral body however is incompletely evaluated. There is mild pre-vertebral soft-tissue swelling and luz marina consistent with recent surgery. There is minimal anterolisthesis of C2 on C3. No evidence of fracture. Moderate degenerative disc and facet degenerative changes are noted, most pronounced at C5-C6. CONCLUSION: Status post anterior fusion from C7 to T1 with intact hardware and unremarkable alignment. Dictated by: ALCIDES HOBBS M.D. on 02/06/2018 at 11:29 Electronically approved by: ALCIDES HOBBS M.D. on 02/06/2018 at 11:29
[2018-02-06] MEDS: CARISOPRODOL 350 MG TAB PO PRN ×2 (12:17→19:55)
[2018-02-07 00:45] VITALS: BP 147/88
[2018-02-07] MEDS: OXYCODONE/ACETAMINOPHEN 5-325 1 EACH TABLET PO PRN ×3 (01:13→13:53)
[2018-02-07] MEDS: DEXAMETHASONE SOD PHOS INJ 4 MG/ML VIAL IV SCH ×2 (03:20→09:22)
[2018-02-07 04:30] VITALS: BP 147/81
[2018-02-07] MEDS: CARISOPRODOL 350 MG TAB PO PRN (04:30)
[2018-02-07] MEDS: LACTATED RINGER'S 1,000 ML IV SCH ×2 (05:49→13:45)
[2018-02-07 08:00] VITALS: BP 147/81
[2018-02-07 08:27] VITALS: BP 143/87
[2018-02-07] MEDS: NICOTINE 21 MG/EA PATCH TOP SCH (09:22)
[2018-02-07] MEDS ORDERED: NORCO 7.5-3251 EACH PO (11:30)
[2018-02-07 12:30] VITALS: BP 138/80
--- NOTE | 2018-02-09 09:11 | Consultation ---
DATE OF CONSULTATION: February 07, 2018 UROLOGY CONSULTATION CHIEF UROLOGIC COMPLAINT/REASON FOR CONSULTATION: Urinary retention and question neurogenic bladder. HISTORY OF PRESENT ILLNESS: Bolivar Harry is a 57-year-old male patient who has had difficulty emptying his bladder even prior to the surgery. He has had numbness of the legs and pelvic area. Nocturia one time tonight and one time per night. Denied dysuria. Denied gross hematuria. PAST MEDICAL HISTORY: Noted for on February 05, 2018, going from C6 to T1 back surgery and history of BPH. Last PSA check was in 2015, which was normal per the patient. Status post right ankle surgery, status post right elbow surgery, status post bilateral cataract surgery. MEDICATIONS: Please see MAR. ALLERGIES: PENICILLIN AND CODEINE. SOCIAL HISTORY: Positive for tobacco. FAMILY HISTORY: No urologic stones or malignancies. REVIEW OF SYSTEMS: Noncontributory other than problems mentioned above for 12-point systems. PHYSICAL EXAMINATION GENERAL: An elderly male in no acute distress. VITALS: Temperature 97.7, pulse 85, respirations 20, blood pressure 143/87. HEENT: Sclerae are anicteric. NECK: Supple. BACK: Without costovertebral tenderness bilaterally. ABDOMEN: Soft and nontender. No mass. No palpable hernias. No palpable adenopathy. : Normal external genitalia. EXTREMITIES: Normal. SKIN: Intact. Normal color. PERTINENT LABORATORY DATA: Hemoglobin 15, hematocrit 44 and platelet count of 253,000. White cell count 7900. Sodium 133, potassium 4.2, chloride 99, bicarb 23, BUN 7, creatinine 0.8, glucose 91. Urinalysis normal. PT of 13.3 and PTT of 24.5. IMPRESSION 1. Urinary retention. 2. BPH by history. 3. Question neurogenic bladder. 4. Hypertension. 5. Tobacco abuse. PLAN 1. Will have the patient keep the Tolliver catheter and have her follow up as an outpatient for urodynamics. 2. Hypertension: Defer to primary service. Thank you for allowing us to participate in the care of your patient. We will be happy to follow along with you. Job#: [id number] RI cc:AICHA DE JESUS MD
== END 2018-02-07 14:04 | disposition home or self-care (01) ==
LOC: OR 08:05 → PACU V 12:23 → MED/SURG 13:44
PROVIDERS: ADMIT Neurological Surgery; ATTEND Neurological Surgery
DX: M47.13 Other spondylosis with myelopathy, cervicothoracic region (principal); M43.13 Spondylolisthesis, cervicothoracic region; F17.210 Nicotine dependence, cigarettes, uncomplicated; Z88.5 Allergy status to narcotic agent; Z88.0 Allergy status to penicillin; R33.9 Retention of urine, unspecified; N40.0 Benign prostatic hyperplasia without lower urinary tract symptoms
CPT/HCPCS: 20931; 22551; 22845; 36415; 63045; 63046; 71046; 72040; 77003; 80048; 85025; 85610; 85730; 86850; 86900; 88304; 88311; 93005; 97116 ×2; 97139; 97162; 97530; C1713 ×4; C1763; G0378 ×3; G8978; G8979; J0360; J1100 ×3; J2001 ×2; J2250; J2270; J2405; J3370 ×2; J3490; J7120; L8699

== ENCOUNTER 2018-03-17 15:54 | Outpatient (RCR) | payer OTHER ==
[~2018-03-17 15:54] MED LIST changes: -ACETAMINOPHEN 1000 MG/100 ML 100 ML IV ONE; -BACITRACIN 50,000 UNIT VIAL ONE; -BUPIVACAINE 0.5%/EPI 30 ML SDV INJ ONE; -GELATIN SPONGE SZ 100 ONE; -LIDOCAINE HCL (LTA) 4 ML SOLN ONE; +NORCO 7.5-3251 EACH PO; -THROMBIN FOR SOLN 5,000 UNIT VIAL ONE
== END 2018-03-18 ==
LOC: PT 15:54
PROVIDERS: ATTEND Neurological Surgery
DX: M47.812 Spondylosis without myelopathy or radiculopathy, cervical region (principal); M47.12 Other spondylosis with myelopathy, cervical region; M53.82 Other specified dorsopathies, cervical region; M62.81 Muscle weakness (generalized); R26.9 Unspecified abnormalities of gait and mobility

== ENCOUNTER 2018-04-16 16:56 | Outpatient (RCR) | payer OTHER | END 2018-04-17 | LOC: PT 16:56 | PROVIDERS: ATTEND Neurological Surgery | DX: M47.13 Other spondylosis with myelopathy, cervicothoracic region (principal); M62.81 Muscle weakness (generalized); R26.9 Unspecified abnormalities of gait and mobility; R26.81 Unsteadiness on feet ==